=== PATIENT | female | born 1985 | race African-American/Black ===

== ENCOUNTER 2025-03-17 02:55 | Emergency (ER) | payer BC ==
[~2025-03-17] VITALS: Ht 157.5 cm; Wt 113.0 kg
[2025-03-17 03:19] VITALS: O2SAT 97
[2025-03-17] MEDS: DEXAMETHASONE 4MG/ML 1ML VIAL IM ONE (04:31)
[2025-03-17 04:47] LABS: CHLORIDE 106 mEq/L (98-107); POTASSIUM 3.9 mEq/L (3.5-5.1); SODIUM 137 mEq/L (136-145)
[2025-03-17 04:48] LABS: CARBON DIOXIDE 23 mEq/L (21-32)
[2025-03-17 04:53] LABS: CREATININE 0.7 mg/dL (0.6-1.0); GLUCOSE 100 mg/dL (70-105); HCG SCREEN NEGATIVE; UREA NITROGEN BLOOD 8 mg/dL (9-23)
[2025-03-17 05:01] LABS: PROTHROMBIN TIME 10.3 sec (9.6-11.0)
[2025-03-17 05:05] LABS: CLARITY URINE CLOUDY (CLEAR); COLOR URINE YELLOW (YELLOW); GLUCOSE URINE NEGATIVE (NEGATIVE); KETONES URINE NEGATIVE (NEGATIVE); LEUKOCYTE ESTERASE URINE NEGATIVE (NEGATIVE); NITRITE URINE NEGATIVE (NEGATIVE); OCCULT BLOOD URINE NEGATIVE (NEGATIVE); PROTEIN URINE NEGATIVE (NEGATIVE); SPECIFIC GRAVITY URINE 1.019 (1.005-1.030); UROBILINOGEN URINE 0.2 E.U./dL (0.2-1.0)
[2025-03-17 05:14] LABS: BASOPHILS % 1.6 % (0.0-2.0); EOSINOPHILS % 0.2 % (0.0-5.0); HEMATOCRIT. 38.1 % (36.0-48.0); HEMOGLOBIN. 12.3 g/dL (12.0-16.0); LYMPHOCYTES % 11.8 % (20.0-50.0); MEAN CORPUSCULAR HEMOGLOBIN 29.1 pg (28.0-32.0); MEAN CORPUSCULAR HGB CONC 32.3 g/dL (31.0-37.0); MONOCYTES % 4.5 % (2.0-8.0); NEUTROPHILS % 81.9 % (40.0-76.0); RED BLOOD CELL COUNT 4.23 mill/uL (4.2-5.4); RED CELL DISTRIBUTION WIDTH 15.8 % (11.6-14.6); WHITE BLOOD COUNT 15.6 x1000/uL (4.5-11.0)
[2025-03-17 05:19] LABS: DIFFERENTIAL COMMENT 1
[2025-03-17] MEDS ORDERED: AMOX1TAB16 MT (05:26)
[2025-03-17] MEDS ORDERED: IBUP-2028 MT (05:44)
[2025-03-17 06:05] VITALS: BP 147/90; PULSE 87; RESP 16; TEMP 36.9; O2SAT 97
[2025-03-17 06:25] LABS: BACTERIA URINE TRACE; RBC URINE 0-2 /hpf (0-2); SQUAMOUS EPITHELIAL CELL URINE 3+ /lpf (RARE/1+); WBC URINE 0-2 /hpf (0-2)
[2025-03-17 06:34] LABS: PLATELET 343 x1000/uL (130-400)
== END 2025-03-17 06:05 | disposition home or self-care (01) ==
LOC: ER 02:55
DX: J03.90 Acute tonsillitis, unspecified (principal)
CPT/HCPCS: 99283; 80048; 81003; 81025; 84703; 87430; 83690; 85025; 85610; 87070; 36415; 96372; J1100